=== PATIENT | male | born 1970 | race Caucasian/White ===

== ENCOUNTER 2016-06-22 17:26 | Emergency (ER) | payer OTHER ==
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
[2016-06-22 20:00] VITALS: BP 130/79; PULSE 65; RESP 16; TEMP 99; O2SAT 99
== END 2016-06-22 19:59 | disposition home or self-care (01) ==
DX: S71.102A Unspecified open wound, left thigh, initial encounter (principal); W54.0XXA Bitten by dog, initial encounter; Y93.55 Activity, bike riding

== ENCOUNTER 2017-06-10 11:06 | Emergency (ER) | payer OTHER ==
[2017-06-10 11:20] VITALS: BP 136/85; PULSE 69; RESP 17; TEMP 97.9; O2SAT 98
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
== END 2017-06-10 12:38 | disposition home or self-care (01) ==
DX: S63.501A Unspecified sprain of right wrist, initial encounter (principal); S43.402A Unspecified sprain of left shoulder joint, initial encounter; V18.0XXA Pedal cycle driver injured in noncollision transport accident in nontraffic accident, initial encounter; Y92.410 Unspecified street and highway as the place of occurrence of the external cause; Y93.55 Activity, bike riding
CPT/HCPCS: L3807